=== PATIENT | male | born 1955 | race Caucasian/White ===

== ENCOUNTER 2018-08-12 13:33 | Inpatient (IN) ==
[2018-08-12] MEDS ORDERED: Morphine Inj 4 MG/ML Vial IV.PUSH ONE (14:56)
[2018-08-12] MEDS ORDERED: Sod Chloride 0.9% Inj 1,000 ML IV.SIG ONE (14:56)
--- NOTE | 2018-08-12 15:05 | ED ---
HPI General Chief Complaint: Abdominal Pain Stated Complaint: Abd Pain Complaint Time Seen by Provider: 08/12/18 14:48 Source: patient Mode of arrival: ambulatory Limitations: no limitations History of Present Illness HPI narrative: 63-year-old male the presents to the ED for evaluation of abdominal pain. Per patient he has a history of colitis and has had pain like this similar in the past. Per patient about 3-4 years he had extensive surgery where he had part of his colon removed by Dr. Servin. Per patient the time he was told he had an infection in he needed surgery. Per patient he has had the pain since Saturday. Per patient is all over but mostly on the right side of the abdomen. He does have a history of a hernia repair and has mesh on it. Per patient the pain has not improved after being started antibiotics by his doctor as well as medications. Per patient he was started on Cipro and Bentyl. He continues to have pain and the pain is 8 out of 10. He states that he has been able to keep stuff down and he is having bowel movements. Per patient he had nausea today. Denies any chest pain or shortness of breath. Pain is mostly to the right side of the abdomen. Related Data Home Medications Medication Instructions Recorded Confirmed ciprofloxacin HCl 500 mg PO BID 08/12/18 08/12/18 dicyclomine 20 mg PO TID 08/12/18 08/12/18 Allergies Allergy/AdvReac Type Severity Reaction Status Date / Time amoxicillin Allergy Mild ITCHING Unverified 05/21/17 22:50 clavulanic acid Allergy Mild ITCHING Unverified 05/21/17 22:50 Review of Systems ROS: all other systems reviewed are negative PMFSH History History Provided By: Patient Medical History Medical History Ulcerative colitis (Acute) Surgical History Surgical History H/O splenectomy (Acute) History of bowel resection (Acute) Social History Social History Substance History: No History of Abuse Smoking Status: Current every day smoker Tobacco Type: Cigarettes How Often Do You Have a Drink Containing Alcohol: Never Recent Travel in [facility] within the Last 8 Weeks: No Recent Out of Country Travel within the Last 8 Weeks: No Exam Narrative Exam Narrative: GENERAL: Well appearing SKIN: Focused skin assessment warm/dry. HEAD: Atraumatic. Normocephalic. EYES: Pupils equal and round. No scleral icterus. No injection or drainage. ENT: No nasal bleeding or discharge. Mucous membranes pink and moist. Tongue is midline. No uvula deviation. NECK: Trachea midline. No JVD. CARDIOVASCULAR: Regular rate and rhythm. No murmur appreciated. RESPIRATORY: No accessory muscle use. Clear to auscultation. Breath sounds equal bilaterally. GASTROINTESTINAL: Abdomen soft, tender to touch especially on the right side of the abdomen compared to the left but more noticeable on the right, nondistended. Hepatic and splenic margins not palpable. MUSCULOSKELETAL: No obvious deformities. No clubbing. No cyanosis. No edema. Full range of motion of the upper and lower extremities bilaterally. 2+ pulses bilaterally. NEUROLOGICAL: Awake and alert. No obvious cranial nerve deficits. Motor grossly within normal limits. Normal speech. PSYCHIATRIC: Appropriate mood and affect; insight and judgment normal. Course Initial Documented Vital Signs Temperature 98.2 F 08/12/18 13:35 Pulse Rate 101 H 08/12/18 13:35 Respiratory Rate 16 08/12/18 13:35 Blood Pressure 175/78 H 08/12/18 13:35 Pulse Oximetry 98 08/12/18 13:35 Last Documented Vital Signs Temperature 98.2 F 08/12/18 13:35 Pulse Rate 76 08/12/18 18:33 Respiratory Rate 15 08/12/18 18:33 Blood Pressure 153/71 H 08/12/18 18:33 Pulse Oximetry 99 08/12/18 18:[address] [facility] Narrative Medical decision making narrative: 63-year-old male the presents to the ED for evaluation of abdominal pain. Patient was properly examined and was found to have signs and symptoms consistent with abdominal pain. Labs and imaging ordered. Patient is very sensitive to touch and has had significant surgeries on his abdomen. Patient already on antibiotics for possible colitis. Labs and imaging showedElevated white blood cell count and what appears to be colitis. No sign of abscess or any other surgical etiology. Because the patient still has a lot of pain at the recommend admission for further evaluation and treatment. Patient was started on Flagyl. I spoke with Dr. Bush over the phone who agrees to admission. Case was discussed with the patient who agrees to admission. He Dr. Bush wanted to start patient on Solu-Medrol 80 mg will help with the colitis flareup. Patient was admitted. Medical Screen Exam Complete: Yes Emergency Medical Condition: Yes Differential Diagnosis Differential Diagnosis: Abdominal pain versus appendicitis versus acute abdomen versus diverticulitis versus colitis versus diverticulitis versus acute abdomen Medical Records Medical records reviewed: Yes I reviewed the patient's medical records. Lab Data Lab results reviewed: Yes I reviewed the patient's lab results. Result diagrams: 08/12/18 14:50 08/12/18 14:50 Lab Results 08/12/18 08/12/18 08/12/18 Range/Units 14:50 14:50 14:50 WBC 18.7 H (4.0-11.0) th/mm3 RBC 4.39 L (4.50-5.90) mil/mm3 Hgb 14.9 (13.0-17.0) gm/dL Hct 44.0 (39.0-51.0) % MCV 100.2 H (80.0-100.0) fL MCH 34.0 (27.0-34.0) pg MCHC 33.9 (32.0-36.0) % RDW 14.1 (11.6-17.2) % Plt Count 277 (150-450) th/mm3 MPV 8.6 (7.0-11.0) fL Neut % (Auto) 69.7 (16.0-70.0) % Lymph % (Auto) 21.6 (9.0-44.0) % [place] % (Auto) 7.6 (0.0-8.0) % Eos % (Auto) 0.4 (0.0-4.0) % Baso % (Auto) 0.7 (0.0-2.0) % Neut # (Auto) 13.0 H (1.8-7.7) th/mm3 Lymph # (Auto) 4.0 (1.0-4.8) th/mm3 [place] # (Auto) 1.4 H (0.0-0.9) th/mm3 Eos # (Auto) 0.1 (0.0-0.4) th/mm3 Baso # (Auto) 0.1 (0.0-0.2) th/mm3 WBC Differential . Differential Comment Auto diff final PT 9.5 L (9.8-11.6) sec INR 0.9 Ratio APTT 35.0 H (23.4-31.7) sec Sodium 141 (136-145) meq/L Potassium 4.3 (3.5-5.1) meq/L Chloride 105 (98-107) meq/L Carbon Dioxide 28.4 (21.0-32.0) meq/L Anion Gap 8 (5-15) meq/L BUN 13 (7-18) mg/dL Creatinine 1.05 (0.60-1.30) mg/dL Estimated GFR 71 L (>89) mL/min Random Glucose 98 (74-106) mg/dL Lactic Acid (0.4-2.0) mmol/L Calcium 8.9 (8.5-10.1) mg/dL Magnesium 2.2 (1.5-2.5) mg/dL Total Bilirubin 0.3 (0.2-1.0) mg/dL AST 22 (15-37) U/L ALT 30 (12-78) U/L Alkaline Phosphatase 81 (45-117) U/L Troponin I Less than 0.02 L (0.02-0.05) ng/mL Total Protein 7.8 (6.4-8.2) g/dL Albumin 3.7 (3.4-5.0) g/dL Lipase 152 (73-393) U/L 08/12/18 Range/Units 14:50 WBC (4.0-11.0) th/mm3 RBC (4.50-5.90) mil/mm3 Hgb (13.0-17.0) gm/dL Hct (39.0-51.0) % MCV (80.0-100.0) fL MCH (27.0-34.0) pg MCHC (32.0-36.0) % RDW (11.6-17.2) % Plt Count (150-450) th/mm3 MPV (7.0-11.0) fL Neut % (Auto) (16.0-70.0) % Lymph % (Auto) (9.0-44.0) % [place] % (Auto) (0.0-8.0) % Eos % (Auto) (0.0-4.0) % Baso % (Auto) (0.0-2.0) % Neut # (Auto) (1.8-7.7) th/mm3 Lymph # (Auto) (1.0-4.8) th/mm3 [place] # (Auto) (0.0-0.9) th/mm3 Eos # (Auto) (0.0-0.4) th/mm3 Baso # (Auto) (0.0-0.2) th/mm3 WBC Differential Differential Comment PT (9.8-11.6) sec INR Ratio APTT (23.4-31.7) sec Sodium (136-145) meq/L Potassium (3.5-5.1) meq/L Chloride (98-107) meq/L Carbon Dioxide (21.0-32.0) meq/L Anion Gap (5-15) meq/L BUN (7-18) mg/dL Creatinine (0.60-1.30) mg/dL Estimated GFR (>89) mL/min Random Glucose (74-106) mg/dL Lactic Acid 1.0 (0.4-2.0) mmol/L Calcium (8.5-10.1) mg/dL Magnesium (1.5-2.5) mg/dL Total Bilirubin (0.2-1.0) mg/dL AST (15-37) U/L ALT (12-78) U/L Alkaline Phosphatase (45-117) U/L Troponin I (0.02-0.05) ng/mL Total Protein (6.4-8.2) g/dL Albumin (3.4-5.0) g/dL Lipase (73-393) U/L Imaging Data Attestation: I personally reviewed and interpreted this imaging study as follows : Radiologist's impression: Abdomen/Pelvis CT 08/12/18 14:56 CONCLUSION: 1. Mild wall thickening and inflammatory change involving the cecum which may be infectious or inflammatory especially given the patient's history of ulcerative colitis. There is an apparent normal appendix and the terminal ileum appears within normal limits. There is no focal abscess or drainable fluid collection. 2. Status post splenectomy with stable postsurgical change. 3. Status post anterior abdominal wall hernia repair. Discharge Plan Discharge Disposition Patient Disposition: 30 Still Patient Discharge Details Diagnosis: Intractable abdominal pain, Ulcerative colitis Physicians Team ED Provider: Mike Huber ED Midlevel Provider: Mychal Huggins Primary Care Provider: Samuel Martinez V Rxs /Orders / Referrals /Forms Prescriptions: No Action ciprofloxacin HCl 500 mg Tablet 500 mg PO BID RF: 0 dicyclomine 20 mg Tablet 20 mg PO TID RF: 0 Discharge Interventions Interventions: Vital Signs Last Done: 08/12/18 18:33 Status ED Status: Admitted Observation Patient
[2018-08-12 15:19] LABS: Baso # (Auto) 0.1 th/mm3 (0.0-0.2); Baso % (Auto) 0.7 % (0.0-2.0); Eos # (Auto) 0.1 th/mm3 (0.0-0.4); Eos % (Auto) 0.4 % (0.0-4.0); Hemoglobin 14.9 gm/dL (13.0-17.0); Lymph % (Auto) 21.6 % (9.0-44.0); Mean Corpuscular HGB Conc 33.9 % (32.0-36.0); Mean Corpuscular Volume 100.2 fL (80.0-100.0); Mean Platelet Volume 8.6 fL (7.0-11.0); Mono # (Auto) 1.4 th/mm3 (0.0-0.9); Mono % (Auto) 7.6 % (0.0-8.0); Neut % (Auto) 69.7 % (16.0-70.0); Platelet Count 277 th/mm3 (150-450); Red Blood Count 4.39 mil/mm3 (4.50-5.90); Red Cell Distribution Width 14.1 % (11.6-17.2); White Blood Count 18.7 th/mm3 (4.0-11.0)
[2018-08-12 15:27] LABS: INR 0.9 Ratio; Prothrombin Time 9.5 sec (9.8-11.6)
[2018-08-12 16:02] LABS: Alanine Aminotransferase 30 U/L (12-78); Albumin 3.7 g/dL (3.4-5.0); Alkaline Phosphatase 81 U/L (45-117); Anion Gap 8 meq/L (5-15); Aspartate Aminotransferase 22 U/L (15-37); Blood Urea Nitrogen 13 mg/dL (7-18); Calcium 8.9 mg/dL (8.5-10.1); Carbon Dioxide 28.4 meq/L (21.0-32.0); Chloride 105 meq/L (98-107); Glomerular Filtration Rate 71 mL/min (>89); Glucose,Random 98 mg/dL (74-106); Lipase 152 U/L (73-393); Magnesium 2.2 mg/dL (1.5-2.5); Potassium 4.3 meq/L (3.5-5.1); Sodium 141 meq/L (136-145); Total Protein 7.8 g/dL (6.4-8.2)
--- NOTE | 2018-08-12 17:56 | CT ---
EXAM DATE: 08/12/2018 5:44 PM EST AGE/SEX: 63 years / Male INDICATIONS: Generalized abdominal pain. CLINICAL DATA: This is the patient's initial encounter. Patient reports that signs and symptoms have been present for 4 - 6 days and indicates a pain score of 10/10. MEDICAL/SURGICAL HISTORY: Ulcerative colitis. Splenectomy. Bowel resection. ORAL CONTRAST: No oral contrast ingested. RADIATION DOSE: 6.64 CTDI (mGy) COMPARISON: [facility], CT ABDOMEN AND PELVIS W/ CONTRAST, 04/26/2015. . TECHNIQUE: Multiple contiguous axial images were obtained through the abdomen and pelvis following b olus infusion of 95 ml Omnipaque 350 (iohexol) nonionic water-soluble contrast as a single exam dos e. No oral contrast ingested. Using automated exposure control and adjustment of the mA and/or kV ac cording to patient size, radiation dose was kept as low as reasonably achievable to obtain optimal di agnostic quality images. DICOM format image data is available electronically for review and comparis on. FINDINGS: Lower Lungs: The visualized lower lungs are clear. Liver: The liver has a homogeneous density without space-occupying lesion. There is no dilation of th e biliary tree. The gallbladder is unremarkable in appearance. Spleen: Status post splenectomy. Small stable splenule. Pancreas: Unremarkable without mass or calcification. Kidneys: Normal in size and shape. No evidence of mass or hydronephrosis. Adrenal Glands: Unremarkable. Aorta: The aorta and proximal iliac vessels are grossly unremarkable without aneurysmal dilation. Bowel/Mesentery: No oral contrast was given limiting the sensitivity of the exam. There is focal wal l thickening and surrounding inflammatory change involving the cecum. The terminal ileum appears belem sly unremarkable. There is no dilatation of the bowel loops. There is no drainable fluid collection. There is a normal appearance appendix. Abdominal Wall: The patient is again noted be status post anterior abdominal wall hernia repair with mesh in place. The mesh bulges outward centrally this is mildly more prominent with no recurrent her jing. Retroperitoneum: No evidence of adenopathy in the retrocrural, para-aortic, or deep pelvic regions. Bladder: Contours are smooth. Reproductive Organs: No abnormal masses or calcifications seen. Inguinal: The inguinal region is unremarkable without evidence of adenopathy. Bony Structures: Unremarkable. CONCLUSION: 1. Mild wall thickening and inflammatory change involving the cecum which may be infectious or infla mmatory especially given the patient's history of ulcerative colitis. There is an apparent normal aimee endix and the terminal ileum appears within normal limits. There is no focal abscess or drainable flu id collection. 2. Status post splenectomy with stable postsurgical change. 3. Status post anterior abdominal wall hernia repair. Electronically signed by: Soto Lowery MD 08/12/2018 5:55 PM EST
[2018-08-12] MEDS ORDERED: Ciprofloxacin 400 MG/200 ML 400 MG/200 ML PIGGYBACK IV.SIG ONE (18:22)
[2018-08-12] MEDS ORDERED: MethylPREDNISolone Sod Succinate Inj 40 MG/ML Vial IV.PUSH ONE (18:42)
[2018-08-12 19:36] LABS: Bilirubin,Urine Negative (Negative); Clarity,Urine Clear (Clear); Color,Urine Yellow (Yellw/Straw); Glucose,Urine (UA) Negative (Negative); Leukocyte Esterase,Urine Negative (Negative); Nitrite,Urine Negative (Negative); Specific Gravity,Urine 1.034 (1.002-1.035)
--- NOTE | 2018-08-12 20:33 | P.HP ---
History of Present Illness Service: [facility] Adult med Primary Care Physician: Samuel Martinez MD Chief Complaint: abd pain History of Present Illness: 63-year-old male with history of GERD and prior diverticulitis who presents to the ED for evaluation of abdominal pain. Per patient he has a history of diverticulitis and has had pain like this similar in the past. Per patient about 3-4 years he had extensive surgery where he had part of his colon removed by Dr. Servin. Per patient the time he was told he had an infection in he needed surgery. Per patient he has had the current pain for 4 days prior to presentation. Per patient is all over but mostly on the right side of the abdomen. He does have a history of a hernia repair and has mesh on it. Per patient the pain has not improved after being started antibiotics yesterday by his doctor. Per patient he was started on Cipro and Bentyl. He continues to have pain and the pain is 8 out of 10. He states that he has been able to keep liquids down and he is having bowel movements. Per patient he had nausea today , but no vomiting. Denies any chest pain or shortness of breath. Pain is mostly to the right side of the abdomen. Lab data noted for a white count of around 18,[address] scan and noted for inflammatory changes around the cecum consistent with possible colitis. Patient is currently requiring IV medication for pain control. He is also nauseated and prefers IV antibiotics at this point. He denies any fevers or chills. No hemoptysis, hematemesis, hematochezia or melena. Last bowel movement was earlier today and he says he has been drinking mostly liquids trying to "clean myself out". SH Lives with his , has 2 adult sons Originally from [place]. Has been in this area for over 18 years Works in construction, finishing work Smokes about 5 cigarettes a day but used to smoke a pack per day for approximately 35 years Drinks alcohol just a few drinks on the weekends only Denies illicit drug use - Diagnosis (1) Acute colitis (2) GERD (gastroesophageal reflux disease) (3) Anxiety Review of Systems Constitutional: Reports anorexia, Reports fatigue, Reports malaise, Denies body ache(s), Denies chills, Denies daytime sleepiness, Denies excessive sweating, Denies fever(s), Denies headache(s), Denies increased appetite, Denies lack of energy, Denies night sweats, Denies weakness, Denies weight gain, Denies weight loss, Denies other Eyes: Denies blind spots, Denies blurry vision, Denies bulging eyes, Denies change in vision, Denies double vision, Denies discharge, Denies dry eyes, Denies floaters, Denies irritation, Denies itchy eyes, Denies loss of vision, Denies pain, Denies requires corrective lenses, Denies sensitivity to light, Denies other Cardiovascular: Denies chest pain, Denies chest pain at rest, Denies chest pain with activity, Denies excessive sweating, Denies fainting, Denies fast heart rate, Denies foot swelling, Denies generalized swelling, Denies irregular heart rhythm, Denies leg pain with activity, Denies leg sores, Denies leg swelling, Denies lightheadedness, Denies radiating jaw, neck or arm pain, Denies rapid, pounding, or irregular heartbeat, Denies shortness of breath, Denies shortness of breath with activity, Denies shortness of breath when lying down, Denies shortness of breath causing sudden awakening, Denies slow heart rate, Denies other Respiratory: Denies change in phlegm color, Denies chest congestion, Denies cough, Denies coughing up blood, Denies excessive phlegm production, Denies pain on inspiration, Denies pain with cough, Denies shortness of breath, Denies shortness of breath with activity, Denies snoring, Denies stridor, Denies wheezing, Denies other Gastrointestinal: Reports abdominal pain, Reports bloating, Reports cramping, Reports feeling full early, Reports nausea, Denies belching, Denies black, tarry stools, Denies bright, red blood in stools, Denies change in bowel habits , Denies constant urge to pass stool, Denies change in stools, Denies coffee ground vomit, Denies constipation, Denies difficulty swallowing, Denies excessive passing of gas, Denies heartburn, Denies incontinent of stools, Denies loose stools, Denies pain with swallowing, Denies vomiting, Denies vomiting blood, Denies other Musculoskeletal: Denies abnormal walking, Denies back pain, Denies body aches, Denies decreased muscle mass, Denies deformity, Denies joint pain, Denies joint swelling, Denies limited joint movement, Denies loss of height, Denies muscle cramps, Denies muscle weakness, Denies neck pain, Denies numbness, Denies radiating pain into limb, Denies stiffness, Denies tingling, Denies other Neurologic: Denies abnormal hearing, Denies abnormal movements, Denies abnormal speech, Denies abnormal walking, Denies behavioral changes, Denies burning sensations, Denies confusion, Denies dizziness, Denies fainting, Denies frequent falls, Denies headache(s), Denies lack of coordination, Denies localized weakness, Denies loss of vision, Denies memory loss, Denies numbness, Denies other visual disturbances, Denies radiating pain, Denies restless legs, Denies convulsions, Denies seizure-like activity, Denies sensory deficit, Denies tingling, Denies tingling/numbness/burning sensations, Denies tremor(s), Denies unsteadiness, Denies weakness, Denies other Psychiatric: Reports anxiety Endocrine: Denies cold intolerance, Denies excessive sweating, Denies flushing, Denies heat intolerance, Denies increased hunger, Denies increased thirst, Denies increased urination, Denies rapid, pounding, or irregular heartbeat, Denies other PMFSH - History History Provided By: Patient - Medical History Medical History: Medical History (Last Updated 08/12/18 @ 20:23 by Jose Bush MD, PhD) Lymphoma in remission (Acute) Diverticulitis - Surgical History Surgical History: Surgical History (Last Updated 08/12/18 @ 20:25 by Jose Bush MD, PhD) H/O splenectomy (Acute) Onset Date: ~2008 H/O sinus surgery H/O ventral hernia repair Onset Date: ~2013 History of bowel resection Onset Date: ~2013 - Family History Family History: Family History (Last Updated 08/12/18 @ 20:27 by Jose Bush MD, PhD) Other Family history non-contributory - Social History I have reviewed the patient's Social History: Yes - Tobacco History Tobacco Use In Past 30 Days: Yes Smoking Status: Current every day smoker Tobacco Type: Cigarettes Cigarettes Per Day: 5 years: 35 - Alcohol History How Often Do You Have a Drink Containing Alcohol: Never - Substance Use History Substance History: No History of Abuse - Travel History Recent Travel in the [place] Within the Last 8 Weeks: No Recent Travel Out of the Country Within the Last 8 Weeks: No - Immunization History Tetanus Immunization: <5 Years Medications and Allergies Active Medications: Active Medications Sodium Chloride (Ns Flush) 2 ml IV.FLUSH PRN PRN PRN Reason: FLUSH AFTER USING IV ACCESS Last Admin: 08/12/18 18:33 Dose: 2 ml Allergies Allergy/AdvReac Type Severity Reaction Status Date / Time amoxicillin Allergy Mild ITCHING Unverified 05/21/17 22:50 clavulanic acid Allergy Mild ITCHING Unverified 05/21/17 22:50 Home Medications Medication Instructions Recorded Confirmed Type alprazolam 0.5 mg PO BID PRN 08/12/18 08/12/18 History ciprofloxacin HCl 500 mg PO BID 08/12/18 08/12/18 History dicyclomine 20 mg PO TID 08/12/18 08/12/18 History omeprazole 20 mg PO DAILY 08/12/18 08/12/18 History Exam Vital signs: Vital Signs 08/12/18 13:35 08/12/18 15:09 08/12/18 18:33 Temperature 98.2 F Pulse Rate 101 H 82 76 Respiratory Rate 16 16 15 Blood Pressure 175/78 H 163/82 H 153/71 H Pulse Oximetry 98 98 99 Intake & Output 08/12/18 08/12/18 08/13/18 06:59 18:59 06:59 Intake Total 1000 / 1000 130 / 130 Balance 1000 / 1000 130 / 130 Weight 71.668 kg Intake: IV 1000 / 1000 130 / 130 Cipro 400 MG/200 ML Inj 400 mg 30 / 30 In 200 ml @ 200 mls/hr IV.SIG ONCE ONE Rx#:[id number] NS Inj 1,000 ML @ Wide Open IV. 1000 / 1000 SIG BOLUS ONE Rx#:[id number] Flagyl 500 MG Inj 100 ML @ 100 100 / 100 mls/hr IV.SIG ONCE ONE Rx#: [id number] Narrative: GENERAL: No acute distress, alert and oriented, cooperative SKIN: Warm and dry. Postsurgical scars anterior midline abdomen. HEAD: Normocephalic. EYES: No scleral icterus. No injection or drainage. Extraocular motions intact. Pupils equal and round. NECK: Supple, trachea midline. No JVD or lymphadenopathy. CARDIOVASCULAR: Regular rate and rhythm without murmurs, gallops, or rubs. RESPIRATORY: Breath sounds equal bilaterally. No accessory muscle use. GASTROINTESTINAL: Abdomen soft, mildly distended, tenderness to palpation in the right lower and right mid abdomen with voluntary guarding. Bowel sounds normal. No rebound. MUSCULOSKELETAL: No cyanosis, or edema. Moves all extremities well. BACK: Nontender without obvious deformity. No CVA tenderness. Results - Labs CBC & Chem 7: 08/12/18 14:50 08/12/18 14:50 Labs: Laboratory Results - last 24 hr 08/12/18 08/12/18 08/12/18 14:50 14:50 14:50 WBC 18.7 H RBC 4.39 L Hgb 14.9 Hct 44.0 MCV 100.2 H MCH 34.0 MCHC 33.9 RDW 14.1 Plt Count 277 MPV 8.6 Neut % (Auto) 69.7 Lymph % (Auto) 21.6 [place] % (Auto) 7.6 Eos % (Auto) 0.4 Baso % (Auto) 0.7 Neut # (Auto) 13.0 H Lymph # (Auto) 4.0 [place] # (Auto) 1.4 H Eos # (Auto) 0.1 Baso # (Auto) 0.1 WBC Differential . Differential Comment Auto diff final PT 9.5 L INR 0.9 APTT 35.0 H Sodium 141 Potassium 4.3 Chloride 105 Carbon Dioxide 28.4 Anion Gap 8 BUN 13 Creatinine 1.05 Estimated GFR 71 L Random Glucose 98 Lactic Acid Calcium 8.9 Magnesium 2.2 Total Bilirubin 0.3 AST 22 ALT 30 Alkaline Phosphatase 81 Troponin I Less than 0.02 L Total Protein 7.8 Albumin 3.7 Lipase 152 Urine Color Urine Clarity Urine pH Ur Specific [place] Urine Protein Urine Glucose (UA) Urine Ketones Urine Occult Blood Urine Nitrate Urine Bilirubin Urine Urobilinogen Ur Leukocyte Esterase Urine RBC Urine WBC Micro UA Comment Ur Microscopic Review Urine Culture Comments 08/12/18 08/12/18 14:50 18:30 WBC RBC Hgb Hct MCV MCH MCHC RDW Plt Count MPV Neut % (Auto) Lymph % (Auto) [place] % (Auto) Eos % (Auto) Baso % (Auto) Neut # (Auto) Lymph # (Auto) [place] # (Auto) Eos # (Auto) Baso # (Auto) WBC Differential Differential Comment PT INR APTT Sodium Potassium Chloride Carbon Dioxide Anion Gap BUN Creatinine Estimated GFR Random Glucose Lactic Acid 1.0 Calcium Magnesium Total Bilirubin AST ALT Alkaline Phosphatase Troponin I Total Protein Albumin Lipase Urine Color Yellow Urine Clarity Clear Urine pH 6.0 Ur Specific [place] 1.034 Urine Protein Negative Urine Glucose (UA) Negative Urine Ketones 20 Urine Occult Blood Negative Urine Nitrate Negative Urine Bilirubin Negative Urine Urobilinogen Less than 2 Ur Leukocyte Esterase Negative Urine RBC Less than 1 Urine WBC Less than 1 Micro UA Comment Culture not ind Ur Microscopic Review Not Reportable Urine Culture Comments Culture not ind - Imaging Impressions Abdomen/Pelvis CT 08/12/18 14:56 CONCLUSION: 1. Mild wall thickening and inflammatory change involving the cecum which may be infectious or inflammatory especially given the patient's history of ulcerative colitis. There is an apparent normal appendix and the terminal ileum appears within normal limits. There is no focal abscess or drainable fluid collection. 2. Status post splenectomy with stable postsurgical change. 3. Status post anterior abdominal wall hernia repair. Caprini VTE Risk Assessment Caprini VTE Risk Assessment: Moderate/High Risk (score >= 2) Caprini Risk Assessment Model: Point Value = 1 Point Value = 2 Point Value = 3 Point Value = 5 Age 41-60 Minor surgery BMI > 25 kg/m2 Swollen legs Varicose veins or History of unexplained or recurrent spontaneous Oral contraceptives or hormone replacement Sepsis (< 1 month) Serious lung disease, including pneumonia (< 1 month) Abnormal pulmonary function Acute myocardial infarction Congestive heart failure (< 1 month) History of inflammatory bowel disease Medical patient at bed rest Age 61-74 Arthroscopic surgery Major open surgery (> 45 min) Laparoscopic surgery (> 45 min) Malignancy Confined to bed (> 72 hours) Immobilizing plaster cast Central venous access Age >= 75 History of VTE Family history of VTE Factor V Leiden Prothrombin [id number] Lupus anticoagulant Anticardiolipin antibodies Elevated serum homocysteine Heparin-induced thrombocytopenia Other congenital or acquired thrombophilia Stroke (< 1 month) Elective arthroplasty Hip, pelvis, or leg fracture Acute spinal cord injury (< 1 month) Prophylaxis Regimen: Total Risk Factor Score Risk Level Prophylaxis Regimen 0-1 Low Early ambulation 2 Moderate Order ONE of the following: *Sequential Compression Device (SCD) *Heparin 5000 units SQ BID 3-4 Higher Order ONE of the following medications: *Heparin 5000 units SQ TID *Enoxaparin/Lovenox 40 mg SQ daily (WT < 150 kg, CrCl > 30 mL/min) *Enoxaparin/Lovenox 30 mg SQ daily (WT < 150 kg, CrCl > 10-29 mL/min) *Enoxaparin/Lovenox 30 mg SQ BID (WT < 150 kg, CrCl > 30 mL/min) AND/OR *Sequential Compression Device (SCD) 5 or more Highest Order ONE of the following medications: *Heparin 5000 units SQ TID (Preferred with Epidurals) *Enoxaparin/Lovenox 40 mg SQ daily (WT < 150 kg, CrCl > 30 mL/min) *Enoxaparin/Lovenox 30 mg SQ daily (WT < 150 kg, CrCl > 10-29 mL/min) *Enoxaparin/Lovenox 30 mg SQ BID (WT < 150 kg, CrCl > 30 mL/min) AND *Sequential Compression Device (SCD) Assessment and Plan - Assessment (1) Acute colitis Code(s): K52.9 - Noninfective gastroenteritis and colitis, unspecified Status : Acute Plan: Questionable etiology. Will give IV antibiotics and steroids. Provide pain medication as needed. Lactic acid normal. White count of 18,000 could be associated with stress response. Given his history of infectious colitis, will provide antibiotics as noted. Will place patient in observation status initially, however he may need to be converted to inpatient tomorrow if still requiring IV pain medication. (2) GERD (gastroesophageal reflux disease) Code(s): K21.9 - Gastro-esophageal reflux disease without esophagitis Status: Chronic Plan: Continue PPI. (3) Anxiety Code(s): F41.9 - Anxiety disorder, unspecified Status: Chronic Plan: Xanax as needed. - Plan Code Status: full Discussed Condition With: Patient and ER provider. Discharge Planning: Hopefully discharge home tomorrow or the next day. Patient is quite reluctant to be discharged too quickly given his history of requiring surgery for similar episode in the past.
[2018-08-12] MEDS ORDERED: ALPRAZolam 0.5 MG Tablet PO PRN (20:35)
[2018-08-12] MEDS: Morphine Inj 4 MG/ML Vial IV.PUSH PRN ×2 (21:03→23:30)
[2018-08-12] MEDS: Piperacil/Tazo 3.375 GM Premix 50 ML IV.SIG SCH (21:03)
[2018-08-12] MEDS: Sod Chloride 0.9% Inj 1,000 ML IV.CONT SCH (22:40)
[2018-08-13] MEDS: Morphine Inj 4 MG/ML Vial IV.PUSH PRN ×4 (04:23→22:35)
[2018-08-13] MEDS: Piperacil/Tazo 3.375 GM Premix 50 ML IV.SIG SCH ×3 (04:25→21:20)
[2018-08-13] MEDS: Sod Chloride 0.9% Inj 1,000 ML IV.CONT SCH ×4 (04:36→22:24)
[2018-08-13] MEDS: MethylPREDNISolone Sod Succinate Inj 40 MG/ML Vial IV.PUSH SCH ×3 (06:30→21:15)
[2018-08-13 08:42] LABS: Baso % (Auto) 0.1 % (0.0-2.0); Hematocrit 39.2 % (39.0-51.0); Hemoglobin 13.3 gm/dL (13.0-17.0); Lymph # (Auto) 1.6 th/mm3 (1.0-4.8); Lymph % (Auto) 9.6 % (9.0-44.0); Mean Corpuscular Hemoglobin 33.6 pg (27.0-34.0); Mean Corpuscular Volume 99.1 fL (80.0-100.0); Mean Platelet Volume 9.4 fL (7.0-11.0); Mono # (Auto) 0.2 th/mm3 (0.0-0.9); Mono % (Auto) 1.5 % (0.0-8.0); Neut # (Auto) 14.5 th/mm3 (1.8-7.7); Neut % (Auto) 88.8 % (16.0-70.0); Platelet Count 262 th/mm3 (150-450); Red Blood Count 3.95 mil/mm3 (4.50-5.90); White Blood Count 16.3 th/mm3 (4.0-11.0)
[2018-08-13] MEDS: Pantoprazole Sodium 20 MG DR Tablet PO SCH (10:58)
--- NOTE | 2018-08-13 15:02 | P.PNIM ---
Subjective Interval history: Follow up acute colitis patient report pain much better than last night but still present worse RLQ no longer having N/V Physical Exam Vital signs: Last Vital Signs Temp 98.4 F 08/13/18 12:00 Pulse 71 08/13/18 12:00 Resp 16 08/13/18 12:00 BP 142/67 H 08/13/18 12:00 Pulse Ox 97 08/13/18 12:00 Narrative: GENERAL: No acute distress, alert and oriented, cooperative SKIN: Warm and dry. Postsurgical scars anterior midline abdomen. HEAD: Normocephalic. EYES: No scleral icterus. No injection or drainage. Extraocular motions intact. Pupils equal and round. NECK: Supple, trachea midline. No JVD or lymphadenopathy. CARDIOVASCULAR: Regular rate and rhythm without murmurs, gallops, or rubs. RESPIRATORY: Breath sounds equal bilaterally. No accessory muscle use. GASTROINTESTINAL: Abdomen soft, mildly distended, tenderness to palpation in the right lower quadrants. Bowel sounds normal. No rebound. MUSCULOSKELETAL: No cyanosis, or edema. Moves all extremities well. BACK: Nontender without obvious deformity. No CVA tenderness. Results Labs CBC & Chem 7: 08/15/18 04:16 08/15/18 04:16 Assessment and Plan Assessment (1) Acute colitis: Code(s): K52.9 - Noninfective gastroenteritis and colitis, unspecified Status: Acute (2) GERD (gastroesophageal reflux disease): Code(s): K21.9 - Gastro-esophageal reflux disease without esophagitis Status: Chronic (3) Anxiety: Code(s): F41.9 - Anxiety disorder, unspecified Status: Chronic Plan Acute colitis pt reports colon resection 3 to 3.5 years ago due to colitis Abdomen/Pelvis CT 08/12/18 CONCLUSION: 1. Mild wall thickening and inflammatory change involving the cecum which may be infectious or inflammatory especially given the patient's history of ulcerative colitis. There is an apparent normal appendix and the terminal ileum appears within normal limits. There is no focal abscess or drainable fluid collection. 2. Status post splenectomy with stable postsurgical change. 3. Status post anterior abdominal wall hernia repair. Questionable etiology. Will give IV antibiotics and steroids. Provide pain medication as needed. Lactic acid normal. Initial White count of 18.8 -> 16.3 (08/13) Given his history of infectious colitis, will continue antibiotics zosyn and Flagyl IV repeat cbc and bmp in AM start clear liquid diet GERD (gastroesophageal reflux disease) Continue PPI. Anxiety Xanax as needed. Attending Attestation The exam, history, and the medical decision-making described in the above note were completed with the assistance of the mid-level provider. I reviewed and agree with the findings presented. I attest that I had a [id number] encounter with the patient on the same day, and personally performed and documented my assessment and findings in the medical record. Patient examined. Assessment and plan formulated with Lluvia Lomax PA-C. I agree with the above. Progress Note: Quality VTE Deep Vein Thrombosis/Pulmonary Embolism Present on Admission: No _ (1) GERD (gastroesophageal reflux disease) Qualifiers: Esophagitis presence:
--- NOTE | 2018-08-13 19:46 | ECG ---
Date Performed: 08/12/2018 Time Performed: 15:19:31 PTAGE: 63 years EKG: Sinus rhythm NORMAL ECG PREVIOUS TRACING : 04/16/2014 06.19 Since the previous tracing, no significant change noted DOCTOR: Severo Anglin Interpretating Date/Time 08/13/2018 19:44:48
[2018-08-14] MEDS: Sod Chloride 0.9% Inj 1,000 ML IV.CONT SCH ×5 (03:17→21:12)
[2018-08-14] MEDS: MethylPREDNISolone Sod Succinate Inj 40 MG/ML Vial IV.PUSH SCH (05:35)
[2018-08-14] MEDS: Piperacil/Tazo 3.375 GM Premix 50 ML IV.SIG SCH ×3 (05:35→21:12)
[2018-08-14 07:33] LABS: Baso % (Auto) 0.1 % (0.0-2.0); Hematocrit 38.1 % (39.0-51.0); Hemoglobin 12.9 gm/dL (13.0-17.0); Lymph # (Auto) 1.9 th/mm3 (1.0-4.8); Lymph % (Auto) 7.9 % (9.0-44.0); Mean Corpuscular HGB Conc 33.9 % (32.0-36.0); Mean Corpuscular Hemoglobin 33.6 pg (27.0-34.0); Mean Platelet Volume 9.3 fL (7.0-11.0); Mono # (Auto) 0.8 th/mm3 (0.0-0.9); Mono % (Auto) 3.4 % (0.0-8.0); Neut # (Auto) 21.4 th/mm3 (1.8-7.7); Neut % (Auto) 88.6 % (16.0-70.0); Platelet Count 257 th/mm3 (150-450); Red Blood Count 3.85 mil/mm3 (4.50-5.90); Red Cell Distribution Width 13.9 % (11.6-17.2); White Blood Count 24.1 th/mm3 (4.0-11.0)
[2018-08-14 08:21] LABS: Alanine Aminotransferase 20 U/L (12-78); Albumin 2.9 g/dL (3.4-5.0); Alkaline Phosphatase 55 U/L (45-117); Anion Gap 7 meq/L (5-15); Aspartate Aminotransferase 14 U/L (15-37); Blood Urea Nitrogen 17 mg/dL (7-18); Calcium 8.3 mg/dL (8.5-10.1); Carbon Dioxide 25.9 meq/L (21.0-32.0); Chloride 110 meq/L (98-107); Glomerular Filtration Rate 89 mL/min (>89); Glucose,Random 133 mg/dL (74-106); Potassium 4.7 meq/L (3.5-5.1); Sodium 143 meq/L (136-145); Total Protein 6.3 g/dL (6.4-8.2)
[2018-08-14] MEDS: Pantoprazole Sodium 20 MG DR Tablet PO SCH (09:42)
--- NOTE | 2018-08-14 12:07 | P.PNGS ---
Subjective Patient reports: no new complaints, feels better, pain is less, tolerating liquids well, voiding w/o difficulty, flatus, bowel movement (Overall he feels much better; still has RLQ abdominal pain but is much improved. He has passed flatus and has also had a BM.) Physical Exam Vital signs: Vital Signs 08/13/18 16:00 08/13/18 20:00 08/13/18 23:00 Temperature 98.2 F 97.6 F Pulse Rate 66 65 Respiratory Rate 16 14 16 Blood Pressure 134/65 109/58 L Pulse Oximetry 97 97 08/14/18 00:00 08/14/18 04:00 08/14/18 08:06 Temperature 97.5 F L 97.6 F 97.9 F Pulse Rate 61 60 68 Respiratory Rate 16 17 18 Blood Pressure 116/56 L 113/58 L 109/60 Pulse Oximetry 97 97 97 08/14/18 11:41 Temperature 97.9 F Pulse Rate 69 Respiratory Rate 18 Blood Pressure 135/95 H Pulse Oximetry 98 Intake & Output 08/13/18 08/14/18 08/14/18 18:59 06:59 18:59 Intake Total 750 / 750 660 / 660 Balance 750 / 750 660 / 660 Intake: IV 150 / 150 300 / 300 Zosyn 3.375 GM Premix 50 ML @ 50 / 50 100 / 100 100 mls/hr IV.SIG Q8H KAREN Rx#: [id number] Flagyl 500 MG Inj 100 ML @ 100 100 / 100 200 / 200 mls/hr IV.SIG Q8H KAREN Rx#: [id number] Oral 600 / 600 360 / 360 Other: # Urine Diapers 2 - Constitutional no acute distress - Routine Abdominal Exam Present: soft Comments: His abdomen is very soft and tender only in the RLQ with minimal voluntary guarding; no involuntary guarding or rebound. Results - Labs 08/14/18 07:00 08/14/18 07:00 Laboratory Results - last 24 hr 08/14/18 08/14/18 07:00 07:00 WBC 24.1 H RBC 3.85 L Hgb 12.9 L Hct 38.1 L MCV 99.0 MCH 33.6 MCHC 33.9 RDW 13.9 Plt Count 257 MPV 9.3 Neut % (Auto) 88.6 H Lymph % (Auto) 7.9 L [place] % (Auto) 3.4 Eos % (Auto) 0.0 Baso % (Auto) 0.1 Neut # (Auto) 21.4 H Lymph # (Auto) 1.9 [place] # (Auto) 0.8 Eos # (Auto) 0.0 Baso # (Auto) 0.0 WBC Differential . Differential Comment Auto diff final Sodium 143 Potassium 4.7 Chloride 110 H Carbon Dioxide 25.9 Anion Gap 7 BUN 17 Creatinine 0.87 Estimated GFR 89 Random Glucose 133 H Calcium 8.3 L Total Bilirubin 0.3 AST 14 L ALT 20 Alkaline Phosphatase 55 Total Protein 6.3 L D Albumin 2.9 L D - Imaging Imaging: ITS Impressions Abdomen/Pelvis CT 08/12/18 14:56 CONCLUSION: 1. Mild wall thickening and inflammatory change involving the cecum which may be infectious or inflammatory especially given the patient's history of ulcerative colitis. There is an apparent normal appendix and the terminal ileum appears within normal limits. There is no focal abscess or drainable fluid collection. 2. Status post splenectomy with stable postsurgical change. 3. Status post anterior abdominal wall hernia repair. Assessment and Plan - Assessment (1) Acute colitis Code(s): K52.9 - Noninfective gastroenteritis and colitis, unspecified Status : Acute Plan: He has mild inflammation of the cecum as seen on the original CT scan; the appendix appears to be normal. He is responding to IV antibiotics and has return to bowel function as he tolerates clear liquids. I believe the elevated WBC from yesterday is likely due to the dose of steroids it appears he received. Surgery is certainly not necessary at this point and hopefully will not be. Would continue IV antibiotics and slowly advance his diet as tolerated. Please call us if he worsens.
--- NOTE | 2018-08-14 14:42 | P.PNIM ---
Subjective Interval history: Follow up acute colitis patient report pain much better than yesterday no longer painful tolerating clear liquid diet Physical Exam Vital signs: Last Vital Signs Temp 97.9 F 08/14/18 11:41 Pulse 69 08/14/18 11:41 Resp 18 08/14/18 11:41 BP 135/95 H 08/14/18 11:41 Pulse Ox 98 08/14/18 11:41 Narrative: GENERAL: This is a well-nourished, well-developed patient, in no apparent distress. CARDIOVASCULAR: Regular rate and rhythm RESPIRATORY: Clear to auscultation. Breath sounds equal bilaterally. GASTROINTESTINAL: Abdomen soft, mild tenderness RLQ, nondistended. Normal active bowel sounds MUSCULOSKELETAL: Extremities without clubbing, cyanosis, or edema. NEURO: Alert & Oriented x4 to person, place, time, situation. Moves all ext x4 Results Labs CBC & Chem 7: 08/15/18 04:16 08/15/18 04:16 Assessment and Plan Assessment (1) Acute colitis: Code(s): K52.9 - Noninfective gastroenteritis and colitis, unspecified Status: Acute Plan Acute colitis pt reports colon resection 3 to 3.5 years ago due to colitis Abdomen/Pelvis CT 08/12/18 CONCLUSION: 1. Mild wall thickening and inflammatory change involving the cecum which may be infectious or inflammatory especially given the patient's history of ulcerative colitis. There is an apparent normal appendix and the terminal ileum appears within normal limits. There is no focal abscess or drainable fluid collection. 2. Status post splenectomy with stable postsurgical change. 3. Status post anterior abdominal wall hernia repair. Questionable etiology. Will give IV antibiotics and steroids. Provide pain medication as needed. Lactic acid normal. Initial White count of 18.8 -> 16.3 (08/13) -> 24.1 (08/14) possibly secondary to steroids which have been DC'd Given his history of infectious colitis, will continue antibiotics zosyn and Flagyl IV Consult general surgery, appreciate input -> no surgical indication at this time repeat CBC and CMP in AM advance diet GERD (gastroesophageal reflux disease) Continue PPI. Anxiety Xanax as needed. Patient tolerating PO intake, plan to DC tomorrow Attending Attestation The exam, history, and the medical decision-making described in the above note were completed with the assistance of the mid-level provider. I reviewed and agree with the findings presented. I attest that I had a [id number] encounter with the patient on the same day, and personally performed and documented my assessment and findings in the medical record. Patient examined. Assessment and plan formulated with Lluvia Lomax PA-C. I agree with the above. Case d/w General Surgery, Dr. Kevin Tate, 08/14/18. No surgical intervention at this time. Continue Antibiotics. Anticipate d/c to home in the next 1 - 2 days. Progress Note: Quality VTE Deep Vein Thrombosis/Pulmonary Embolism Present on Admission: No
[2018-08-14] MEDS: Morphine Inj 4 MG/ML Vial IV.PUSH PRN ×2 (15:05→21:12)
[2018-08-15] MEDS: Morphine Inj 4 MG/ML Vial IV.PUSH PRN (03:13)
[2018-08-15] MEDS: Sod Chloride 0.9% Inj 1,000 ML IV.CONT SCH ×2 (03:14→04:19)
[2018-08-15] MEDS: Piperacil/Tazo 3.375 GM Premix 50 ML IV.SIG SCH (04:19)
[2018-08-15 05:01] LABS: Baso % (Auto) 0.2 % (0.0-2.0); Eos % (Auto) 0.1 % (0.0-4.0); Hematocrit 37.9 % (39.0-51.0); Hemoglobin 12.4 gm/dL (13.0-17.0); Lymph # (Auto) 4.2 th/mm3 (1.0-4.8); Lymph % (Auto) 23.1 % (9.0-44.0); Mean Corpuscular HGB Conc 32.8 % (32.0-36.0); Mean Corpuscular Hemoglobin 32.9 pg (27.0-34.0); Mean Corpuscular Volume 100.4 fL (80.0-100.0); Mono # (Auto) 1.2 th/mm3 (0.0-0.9); Mono % (Auto) 6.4 % (0.0-8.0); Neut # (Auto) 12.8 th/mm3 (1.8-7.7); Neut % (Auto) 70.2 % (16.0-70.0); Platelet Count 215 th/mm3 (150-450); Red Blood Count 3.78 mil/mm3 (4.50-5.90); White Blood Count 18.3 th/mm3 (4.0-11.0)
[2018-08-15 05:31] LABS: Alanine Aminotransferase 24 U/L (12-78); Albumin 2.8 g/dL (3.4-5.0); Anion Gap 6 meq/L (5-15); Aspartate Aminotransferase 16 U/L (15-37); Blood Urea Nitrogen 16 mg/dL (7-18); Calcium 7.7 mg/dL (8.5-10.1); Carbon Dioxide 26.6 meq/L (21.0-32.0); Chloride 111 meq/L (98-107); Glomerular Filtration Rate 73 mL/min (>89); Glucose,Random 90 mg/dL (74-106); Sodium 144 meq/L (136-145)
[2018-08-15 05:33] LABS: Alkaline Phosphatase 52 U/L (45-117); Total Protein 5.9 g/dL (6.4-8.2)
[2018-08-15] MEDS: Pantoprazole Sodium 20 MG DR Tablet PO SCH (08:10)
[2018-08-15 08:35] VITALS: BP 125/65; RESP 18; TEMP 97.3; O2SAT 98
--- NOTE | 2018-08-15 11:30 | P.DS ---
DS: Providers Date of admission: 08/14/18 09:33 Primary care physician: Samuel Martinez MD Consults: 08/13/18 18:34 Consult to General Surgery Routine Consulting Provider: Kevin Tate Reason for Consultation: Colitis hx of surgical resection. Dr Rodriguez discussed with Dr Tate. Notified:: Service Spoke with:: Suzanne Date Notified:: 08/13/18 Time Notified:: 18:36 Ordering Provider: PEDRO DS: Diagnosis Discharge Diagnosis (1) Acute colitis: Status: Acute DS: Summary Assessment (1) Acute colitis: Code(s): K52.9 - Noninfective gastroenteritis and colitis, unspecified Status: Acute Plan Acute colitis pt reports colon resection 3 to 3.5 years ago due to colitis Abdomen/Pelvis CT 08/12/18 1. Mild wall thickening and inflammatory change involving the cecum which may be infectious or inflammatory especially given the patient's history of ulcerative colitis. There is an apparent normal appendix and the terminal ileum appears within normal limits. There is no focal abscess or drainable fluid collection. 2. Status post splenectomy with stable postsurgical change. 3. Status post anterior abdominal wall hernia repair. Lactic acid normal. Initial White count of 18.8 -> 16.3 (08/13) -> 24.1 (08/14) possibly secondary to steroids (stopped 08/14), 18.3 (08/15/18) - Zosyn (08/12 - 08/15) - Flagyl (08/13 - 08/15) - Appreciate input from General Surgery, Dr. Kevin Tate. Case d/w Dr. Tate (). No surgical intervention at this time. - Will discharge pt on ciprofloxin 500mg PO BID x 6d & flagyl 500mg PO TID x 6d. Total of 10d antibiotic treatment from start of hospitalization. - Pt to have f/u CBC on 08/19/18 with results to PCP, Dr. Samuel Martinez. - Pt to f/u with Dr. Samuel Martinez in one week - see discharge orders - Pt reevaluated on the day of discharge. Pt tolerating PO intake without n/v/ d. Pt denies abdominal pain & clinically feels much improved from admission. GERD (gastroesophageal reflux disease) Continue PPI. Anxiety Xanax as needed. Time Spent with Patient Total time spent providing and/or coordinating discharge services: Quality: VTE Deep Vein Thrombosis/Pulmonary Embolism Present on Admission: No DS: Data Labs on day of discharge: Labs from last 24 hours 08/15/18 08/15/18 04:16 04:16 WBC 18.3 H RBC 3.78 L Hgb 12.4 L Hct 37.9 L MCV 100.4 H MCH 32.9 MCHC 32.8 RDW 14.0 Plt Count 215 MPV 9.0 Neut % (Auto) 70.2 H Lymph % (Auto) 23.1 Gove % (Auto) 6.4 Eos % (Auto) 0.1 Baso % (Auto) 0.2 Neut # (Auto) 12.8 H Lymph # (Auto) 4.2 Gove # (Auto) 1.2 H Eos # (Auto) 0.0 Baso # (Auto) 0.0 WBC Differential . Differential Comment Auto diff final Sodium 144 Potassium 4.0 Chloride 111 H Carbon Dioxide 26.6 Anion Gap 6 BUN 16 Creatinine 1.03 Estimated GFR 73 L Random Glucose 90 Calcium 7.7 L Total Bilirubin 0.3 AST 16 ALT 24 Alkaline Phosphatase 52 Total Protein 5.9 L Albumin 2.8 L Impressions Abdomen/Pelvis CT 08/12/18 14:56 CONCLUSION: 1. Mild wall thickening and inflammatory change involving the cecum which may be infectious or inflammatory especially given the patient's history of ulcerative colitis. There is an apparent normal appendix and the terminal ileum appears within normal limits. There is no focal abscess or drainable fluid collection. 2. Status post splenectomy with stable postsurgical change. 3. Status post anterior abdominal wall hernia repair. Discharge Plan Discharge Disposition Patient Disposition: 01 Discharge Home Discharge Condition Condition: Stable Discharge Order Discharge Orders: Discharge Order (Routine); Ordered 08/15/18 Ordered By: Joe Rodriguez Discharge Details Anticipated Discharge Date: 08/15/18 Physicians Team Primary Care Provider: Samuel Martinez V Attending Provider: Joe Rodriguez Other Providers: Kevin Tate Rxs /Orders / Referrals /Forms Prescriptions: New metronidazole [Flagyl] 500 mg tablet 500 mg PO Q8H 6 Days Qty: 18 RF: 0 ciprofloxacin HCl 500 mg tablet 500 mg PO BID 6 Days Qty: 12 RF: 0 Continue dicyclomine 20 mg Tablet 20 mg PO TID RF: 0 alprazolam 0.5 mg Tablet 0.5 mg PO BID PRN (Reason: Anxiety) RF: 0 omeprazole 20 mg Capsule,Delayed Release(Dr/Ec) 20 mg PO DAILY RF: 0 Discontinued ciprofloxacin HCl 500 mg Tablet 500 mg PO BID RF: 0 Referrals: Samuel Martinez MD [Primary Care Provider] - See Instructions (Follow up in 1 week) Status ED Status: Left Department
[2018-08-15 13:00] VITALS: PULSE 55
== END 2018-08-15 12:52 | disposition home or self-care (01) ==
LOC: NEPE 13:33 → NEDA 13:33 → NEPHCDU 21:43 → N04 08-14 18:09
PROVIDERS: ADMIT Hospitalist; ATTEND Hospitalist
DX: F17.210 Nicotine dependence, cigarettes, uncomplicated; F41.9 Anxiety disorder, unspecified; Z90.49 Acquired absence of other specified parts of digestive tract; Z85.72 Personal history of non-Hodgkin lymphomas; K52.9 Noninfective gastroenteritis and colitis, unspecified; K21.9 Gastro-esophageal reflux disease without esophagitis